=== PATIENT | male | born 1995 ===

== ENCOUNTER 2025-03-11 18:36 | Emergency (ER) | payer SELFPAY ==
[2025-03-11 19:22] LABS: #Basophils 0.06 10x3/uL (0.0-0.2); #Eosinophils 0.15 10x3/uL (0.0-0.5); #Monocytes 0.82 10x3/uL (0.0-1.1); #Neutrophils 4.16 10x3/uL (1.5-8.4); %Basophils 0.8 % (0.0-2.0); %Eosinophils 1.9 % (0.0-6.0); %Lymphocytes 33.1 % (18.0-47.0); %Monocytes 10.6 % (0.0-10.0); %Neutrophils 53.5 % (40.0-75.0); Hematocrit 45.2 % (38.8-50.0); Hemoglobin 15.5 g/dL (13.5-17.5); Mean Corpuscular Hemoglobin 30.0 pg (27.0-33.0); Mean Corpuscular Volume 87.6 fL (81.2-95.1); Platelet Count 320 10x3/uL (150-450); Red Blood Cell (RBC) Count 5.16 10x6/uL (4.32-5.72); White Blood Cell (WBC) Count 7.77 10x3/uL (3.5-10.5)
[2025-03-11] MEDS ORDERED: Droperidol 5 MG/2 ML VIAL ONE (19:31)
[2025-03-11] MEDS ORDERED: diphenhydrAMINE 50 MG/ML VIAL ONE (19:32)
[2025-03-11 19:38] LABS: ALT (SGPT) 22 U/L (Less than 45); AST (SGOT) 23 U/L (11-34); Acetaminophen Less than 10 mcg/mL (Less than 10); Albumin 4.3 g/dL (3.1-4.5); Alkaline Phosphatase 55 U/L (40-110); Anion Gap 16 mmol/L (10-20); BUN (Urea Nitrogen) 7 mg/dL (8.9-20.6); Bilirubin, Total 0.7 mg/dL (0.3-1.2); CK (CPK) 251 U/L (30-200); Calc. Creatinine Clearance 0 mL/min (70-130); Calcium 8.7 mg/dL (7.8-10.44); Carbon Dioxide 25 mmol/L (22-29); Chloride 101 mmol/L (98-107); Globulin 2.6 g/dL (2.4-3.5); Glucose 88 mg/dL (70-105); Potassium 3.2 mmol/L (3.5-5.1); Salicylate Less than 8.0 mg/dL (Less than 8.0); Sodium 139 mmol/L (136-145)
[2025-03-11] MEDS ORDERED: Prochlorperazine 10 MG/2 ML VIAL ONE (20:37)
[2025-03-11] MEDS ORDERED: Famotidine 20 MG TAB ONE (20:41)
[2025-03-11 22:04] LABS: Glucose, Urine (Dipstick) Normal (Negative); Leukocyte Negative (Negative); Protein, Urine (Dipstick) 15 mg/dl (Neg-Trace); Specific Gravity, Urine 1.015 (1.005-1.030)
[2025-03-11 22:13] LABS: Cocaine Metabolite Screen Negative (Negative); THC/Cannabinoid Screen Negative (Negative); Tricyclic Screen Negative (Negative)
[2025-03-11 22:27] LABS: Bacteria/HPF None Seen HPF (None Seen); CAUTI Indications for Culture Pelvic or flank pain; RBC/HPF None Seen HPF (0-3); Urine Culture Reflex No No; WBC/HPF None Seen HPF (0-3)
== END 2025-03-11 22:52 | disposition home or self-care (01) ==
LOC: CSHERS 18:36
DX: F15.20 Other stimulant dependence, uncomplicated (principal); E87.6 Hypokalemia; E86.0 Dehydration; F17.210 Nicotine dependence, cigarettes, uncomplicated
CPT/HCPCS: 80053; 80306; 80307; 81001; 82550; 83605; 85025; 93005; 96374; 96375; J0780; J1200; J1790